=== PATIENT | male | born 1980 | race Caucasian/White ===

== ENCOUNTER 2019-10-30 12:07 | Emergency (ER) | payer OTHER ==
--- NOTE | 2019-10-30 13:08 | UC ---
Knee Pain HPI - HPI Summary HPI Summary: 39-year-old male presents with complaints of right knee pain. States at work today he slipped on some ice and is not entirely sure of the mechanism of injury but felt to the ground and noted that his kneecap appeared to be displaced medially. States he pushed the kneecap back into place. He was able to walk and bear weight immediately after the injury however has noted progressively worsening pain and swelling of the knee since that time. He has not taken any [id number] analgesics. Denies any numbness or tingling. - History of Current Complaint Chief Complaint: UCLowerExtremity Stated Complaint: KNEE INJURY Time Seen by Provider: 10/30/19 12:36 Hx Obtained From: Patient Pain Intensity: 8 - Allergies/Home Medications Allergies/Adverse Reactions: Allergies Allergy/AdvReac Type Severity Reaction Status Date / Time No Known Allergies Allergy Verified 10/30/19 12:33 Home Medications: Home Medications Albuterol inh POWDER (NF) [Proair Respiclick] 1 puff INH DAILY 10/30/19 [ History Confirmed 10/30/19] PMH/Surg Hx/FS Hx/Imm Hx Previously Healthy: Yes - Denies significant PMH - Surgical History Surgical History: None - Family History Known Family History: Positive: Non-Contributory - Social History Occupation: Employed Full-time Lives: With Family Alcohol Use: Daily Substance Use Type: None Smoking Status (MU): Never Smoked Tobacco Review of Systems All Other Systems Reviewed And Are Negative: Yes Constitutional: Positive: Negative Skin: Negative: Bruising Respiratory: Positive: Negative Cardiovascular: Positive: Negative Gastrointestinal: Positive: Negative Genitourinary: Positive: Negative Motor: Negative: Weakness Neurovascular: Negative: Decreased Sensation Musculoskeletal: Positive: Other: - See HPI Neurological: Positive: Negative Is Patient Immunocompromised?: No Physical Exam - Summary Physical Exam Summary: GENERAL APPEARANCE: Well developed, well nourished, alert and cooperative, and appears to be in no acute distress. CARDIAC: Normal S1 and S2. No S3, S4 or murmurs. Rhythm is regular. There is no peripheral edema, cyanosis or pallor. Extremities are warm and well perfused. Capillary refill is less than 2 seconds. Peripheral pulses intact. LUNGS: Clear to auscultation without rales, rhonchi, wheezing or diminished breath sounds. ABDOMEN: Positive bowel sounds. Soft, nondistended, nontender. No guarding or rebound. No masses or hepatosplenomegally. MUSKULOSKELETAL: Normal muscular development. Limping gait. EXTREMITIES: Tenderness to the medial aspect of the right knee with mild edema. No gross deformity or ecchymosis noted. Full ROM with increased pain with flexion. Circulation and sensation intact. SKIN: Skin normal color, texture and turgor with no lesions or eruptions. Triage Information Reviewed: Yes Vital Signs: Initial Vital Signs Temp 97.9 F 10/30/19 12:30 Pulse 87 10/30/19 12:30 Resp 18 10/30/19 12:30 BP 134/71 10/30/19 12:30 Pulse Ox 98 10/30/19 12:30 Vital Signs Reviewed: Yes Diagnostics - Radiology No standard instances Radiology Interpretation Completed By: Radiologist Summary of Radiographic Findings: Order Information: KNEE RIGHT 4+ VWS. Indication: Right knee pain after fall. 4 views of the right knee demonstrates soft tissue swelling. There is no fracture or dislocation. No other bone or joint abnormality is noted. IMPRESSION: No fracture of the right knee is noted. Knee Pain Course/Dx - Course Course Of Treatment: 39-year-old male presents with complaints of right knee pain. States at work today he slipped on some ice and is not entirely sure of the mechanism of injury but felt to the ground and noted that his kneecap appeared to be displaced medially. States he pushed the kneecap back into place. He was able to walk and bear weight immediately after the injury however has noted progressively worsening pain and swelling of the knee since that time. He has not taken any [id number]-iuvotye analgesics. Denies any numbness or tingling. Afebrile. Vital signs stable. Patient had tenderness to the medial aspect of the right knee with mild edema. No gross deformity or ecchymosis noted. Full ROM with increased pain with flexion. Circulation and sensation intact. X-ray of the knee showed no acute fracture or dislocation. Reviewed results with the patient. With the reported dislocation of the patella we'll place him in a knee immobilizer and provided crutches for limited weightbearing as tolerated. He was also placed in an Isaac wrap by the RN to help manage the edema. I provided him with a prescription for naproxen 500 mg 1 tablet every 12 hours for pain. He is to follow-up with orthopedic surgery in 3-5 days for further evaluation and treatment. Anticipatory guidance and warning symptoms were reviewed with the patient. Verbalizes understanding and agrees with plan of care. - Differential Dx/Diagnosis Differential Diagnosis/HQI/PQRI: Contusion, Fracture (Closed), Internal Derangement Of Knee, Sprain Provider Diagnosis: Right knee injury Discharge ED - Sign-Out/Discharge Documenting (check all that apply): Patient Departure All imaging exams completed and their final reports reviewed: Yes - Discharge Plan Condition: Stable Disposition: HOME Prescriptions: Naproxen [Naproxen 500 mg tab] 500 mg PO Q12HR #30 tablet Patient Education Materials: Knee Pain (ED) Forms: *Work Release Referrals: No Primary Care Phys,NOPCP [Primary Care Provider] - Lul Stanford MD [Medical Doctor] - 3 Days (Follow up in 3-5 days. Call for appointment.) Additional Instructions: The x-ray performed in the clinic today showed no evidence of a fracture. Rest the knee as much as possible. Use an ISAAC wrap or compression sleeve to help with swelling. Wear the knee immobilizer that was applied in the clinic for support. You may remove to sleep and shower but should wear at all other times. You walk and bear weight as tolerated. Use the crutches that were provided for support. Apply ice to the affected area for 15-20 minutes at least 4 times a day to help with the pain and swelling. Elevate the leg to help reduce swelling. Take naproxen 500 mg 1 tablet every 12 hours with food for next 5 days then 1 tablet every 12 hours as needed for pain. Follow up with orthopedic surgery in 3-5 days for further evaluation and treatment. Call for appointment. Seek immediate medical attention if you have severe pain not managed with pain medication, you are unable to walk or bear any weight, develop numbness or tingling in the leg, foot, or toes, or have any worsening of symptoms. - Billing Disposition and Condition Condition: STABLE Disposition: Home
== END 2019-10-30 13:42 | disposition home or self-care (01) ==
LOC: UCEAST 12:07
DX: S89.91XA Unspecified injury of right lower leg, initial encounter (principal); W00.0XXA Fall on same level due to ice and snow, initial encounter; Y92.9 Unspecified place or not applicable; Y99.0 Civilian activity done for income or pay
CPT/HCPCS: 99203; G0463